=== PATIENT | female | born 1985 | race Caucasian/White ===

== ENCOUNTER 2022-01-02 09:15 | Day surgery (SDC) | payer MEDICAID ==
[2021-12-26 12:21] LABS: CLARITY,URINE CLEAR (Clear); COLOR,URINE YELLOW (Yellow); GLUCOSE, URINE NEGATIVE (Neg); KETONES,URINE NEGATIVE (Neg); LEUKOCYTE ESTERASE ,URINE NEGATIVE (Neg); NITRITES, URINE NEGATIVE (Neg); OCCULT BLOOD,URINE NEGATIVE (Neg); PH,URINE 6.5 (4.8-8.0); PROTEIN,URINE NEGATIVE (Neg); UROBILINOGEN,URINE 0.2 E.U/dL (0.2-1.0)
[2021-12-26 12:23] LABS: BASOPHILS # (AUTO) 0.1 X10'3 (0-0.2); BASOPHILS % (AUTO) 0.6 % (0-1); EOSINOPHILS # (AUTO) 0.1 X10'3 (0-0.9); EOSINOPHILS % (AUTO) 0.5 % (0-6); LYMPHOCYTES # (AUTO) 1.9 X10'3 (1.1-4.8); LYMPHOCYTES % (AUTO) 19.3 % (21-51); MEAN CORPUSCULAR HEMOGLOBIN 32.4 PG (27.0-31.0); MEAN CORPUSCULAR VOLUME 95.1 FL (78-98); MEAN PLATELET VOLUME 10.6 FL (7.4-10.4); MONOCYTES # (AUTO) 0.6 X10'3 (0-0.9); MONOCYTES % (AUTO) 5.9 % (2-12); NEUTROPHILS # (AUTO) 7.2 X10'3 (1.8-7.7); NEUTROPHILS % (AUTO) 73.7 % (42-75); PRE OP HEMATOCRIT 44.5 % (35.0-45.0); PRE OP HEMOGLOBIN 15.1 g/dL (12.0-16.0); PRE OP PLATELET COUNT 201 X10'3 (140-440); RED BLOOD COUNT 4.68 X10'6 (4.20-5.60); RED CELL DISTRIBUTION WIDTH 12.5 % (11.5-14.5)
[2021-12-26 12:24] LABS: UA COLLECTION TYPE CLN CATCH MIDSTREAM
[2021-12-26 12:30] LABS: HCG SERUM QL NEGATIVE
[2021-12-26 12:36] LABS: ALBUMIN/GLOBULIN RATIO 1.4 (1.1-1.5); ALKALINE PHOSPHATASE 118 IU/L (46-116); BLOOD UREA NITROGEN 10 MG/DL (7-18); BUN/CREATININE RATIO 16.7 (6.6-38.0); CALCIUM 9.8 MG/DL (8.5-10.1); CHLORIDE 108 MMOL/L (99-107); PRE OP ANION GAP 11 (8-16); PRE OP AST 18 U/L (10-37); PRE OP BILIRUB, TOTAL 0.5 MG/DL (0.0-1.0); PRE OP GLUCOSE 92 MG/DL (70-104); PRE OP POTASSIUM 3.4 MMOL/L (3.4-5.1); PRE OP SODIUM 143 MMOL/L (135-145); TOTAL CARBON DIOXIDE 23.7 MMOL/L (24-32); TOTAL PROTEIN 8.5 G/DL (6.4-8.2); eGFR > 90 ML/MIN
[2021-12-26 12:43] LABS: PRE OP ALT 92 U/L (30-65)
[2021-12-26 12:54] LABS: PLATELET ESTIMATE NORMAL
[~2022-01-02] VITALS: Ht 160 cm; Wt 54.4 kg
[2022-01-02] VITALS (8 sets, daily range): BP systolic 91–127; BP diastolic 70–88
[~2022-01-02 09:15] MED LIST: ACET-3068 PO; GABA300C PO; ceFOXitin 2GM-NS 100mL ADDvant 100 ML IV ONE; famotidine 20mg tablet PO ONE; ringers solution, lacted 1,000 ML IV SCH
[2022-01-02] MEDS ORDERED: midazolam 1 mg/ML 2ml injection ONE (12:35)
[2022-01-02] MEDS ORDERED: fentaNYL /PF 50mcg/ml 5ml ampule ONE (12:39)
[2022-01-02] MEDS ORDERED: meperidine/PF 25mg/ml syringe IV PRN ×2 (12:40)
[2022-01-02] MEDS ORDERED: morphine 4 MG/ML inj SYRINge IV PRN (12:40)
[2022-01-02] MEDS ORDERED: acetaminophen 1,000mg/100ml IV 100 ML IV PRN (12:40)
[2022-01-02] MEDS ORDERED: morphine 2 MG/ML inj. syringe IV PRN (12:40)
[2022-01-02] MEDS ORDERED: ringers solution, lacted 1,000 ML IV SCH (12:40)
[2022-01-02] MEDS ORDERED: ketorolac trometh. 30mg/ml inj. IV ONE ×2 (12:40→14:20)
[2022-01-02] MEDS ORDERED: proCHLORperazine 10 MG/2 ml inj IV PRN (12:40)
[2022-01-02] MEDS ORDERED: labetalol 20mg/4ml (5mg/ml) syringe IV PRN (12:40)
[2022-01-02] MEDS ORDERED: hydrALAZINE 20mg/ml inj. IV PRN (12:40)
[2022-01-02] MEDS ORDERED: ondansetron/PF 4mg/2ml inj IV PRN (12:40)
[2022-01-02] MEDS ORDERED: sevoflurane 250ml liquid IH ONE (12:46)
[2022-01-02] MEDS: BUPIVAcaine/PF 2.5 mg/ml (0.25%) 30ml vial ONE ×2 (13:47→13:48)
[2022-01-02] MEDS ORDERED: rocuronium 10mg/ml inj IV ONE (13:59)
[2022-01-02] MEDS ORDERED: propofol inj 20 ML IV ONE (13:59)
[2022-01-02] MEDS ORDERED: LIDOcaine 2% (20mg/ml) 5ml vial ONE (13:59)
[2022-01-02] MEDS ORDERED: dexamethasone sod phosphate 4mg/ml inj. ONE (14:00)
[2022-01-02] MEDS ORDERED: ondansetron/PF 4mg/2ml inj ONE (14:00)
[2022-01-02] MEDS ORDERED: glycopyrrolate 0.2mg/ml inj ONE (14:03)
[2022-01-02] MEDS ORDERED: neostigmine methylsulfate 1 MG/ML 10ml vial ONE (14:03)
[2022-01-02] MEDS ORDERED: morphine 10mg/ml inj. ONE (14:11)
[2022-01-02] MEDS ORDERED: diphenhydrAMINE 50 mg/ml inj ONE (14:13)
--- NOTE | 2022-01-02 14:17 | NUR ---
Received from OR via [facility] , accompanied by Anesthesiologist DR MACK and report given by Anesthesiolgist. PT PRESENTS WITH 20G LEFT HAND, 3 LAP SITES ON ABD WITH DUNG CORDOVA. Addendum: 01/02/22 at 1449 by Charito Marie RN, RN Amended: Links added.
[2022-01-02] MEDS: meperidine/PF 25mg/ml syringe IV PRN ×2 (14:22→14:29)
[2022-01-02] MEDS ORDERED: HYDROcodone/acetaminophen 5mg/325mg tablet PO ONE (15:00)
--- NOTE | 2022-01-02 15:27 | NUR ---
ALL DISCHARGE CRITERIA HAS BEEN MET. VSS, PAIN AT A TOLERABLE LEVEL, VOIDING AND ABLE TO SAFELY AMBULATE AND TRANSFER SELF. IV TAKEN OUT WITHOUT ANY COMPLICATIONS. ALL DISCHARGE INSTRUCTIONS COVERED WITH PATIENT AND ALL QUESTIONS ANSWERED. PATIENT TAKEN OUT VIA WHEELCHAIR TO PERSONAL VEHICLE WHERE FAMILY/FRIEND DROVE PATIENT HOME. Addendum: 01/02/22 at 1534 by Charito Marie RN, RN Amended: Links added.
== END 2022-01-02 15:27 | disposition home or self-care (01) ==
LOC: PAS 09:15
PROVIDERS: ATTEND Obstetrics & Gynecology Obstetrics
DX: N83.201 Unspecified ovarian cyst, right side (principal); F17.210 Nicotine dependence, cigarettes, uncomplicated; Z91.040 Latex allergy status; F41.8 Other specified anxiety disorders; K21.9 Gastro-esophageal reflux disease without esophagitis; G62.9 Polyneuropathy, unspecified; F32.9 Major depressive disorder, single episode, unspecified; I10 Essential (primary) hypertension; Z79.899 Other long term (current) drug therapy; Z98.890 Other specified postprocedural states
CPT/HCPCS: 36415; 58100; 58661; 71046; 80053; 81003; 82948; 84703; 85025; 86885; 86900; 86901; J0131; J0694; J1100; J1200; J1885; J2175; J2250; J2274; J2405; J2704; J2710; J3010; J3490; J7030; J7120; Z7506; Z7508; Z7512; 85008; A4618; A6258; A6449; A7000